=== PATIENT | female | born 1990 | race African-American/Black ===

== ENCOUNTER 2023-11-11 11:06 | Outpatient (CLI) | payer OTHER, SELFPAY ==
--- NOTE | ~2023-11-11 | US_ITS ---
US right upper quadrant INDICATION: Bloating. Abdomen discomfort. PROCEDURE: Realtime right upper abdominal ultrasound. COMPARISON: No prior studies for comparison. FINDINGS: The pancreas is normal without focal mass or pancreatic ductal dilation. Liver echotexture is normal without focal mass or intrahepatic biliary dilatation. There is normal directional flow i n the portal vein. The gallbladder is normal without stones, gallbladder wall thickening or pericholecystic fluid. Comm on bile duct measures 3.5 mm. No sonographic Franks's sign. IMPRESSION: 1: Normal limited abdominal ultrasound. Reviewed, dictated and finalized at location B.
[2023-11-11 11:40] LABS: Hematocrit 42.3 % (37.0-47.0); Hemoglobin 13.9 g/dL (12.0-15.0); Mean Corpuscular HGB Conc 32.9 g/dl (32-36); Mean Corpuscular Hemoglobin 30.3 pg (26-34); Mean Corpuscular Volume 92.4 fl (80-100); Mean Platelet Volume 11.5 fl (7.4-10.4); Platelet Count Result 248 k/mm3 (150-375); Red Blood Count 4.58 M/mm3 (4.2-5.4); Red Cell Distribution Width 13.3 % (11.5-14.5); White Blood Count 7.5 K/mm3 (4.5-10.0)
[2023-11-11 12:17] LABS: Free T4 Free Thyroxine 0.87 ng/mL (0.78-2.19)
[2023-11-11 12:33] LABS: HIV 1/2 Ab P24 Ag Result Negative (Negative)
[2023-11-11 12:35] LABS: Rapid Plasma Reagin Non-Reactive (NonReactive)
[2023-11-11 12:48] LABS: Hepatitis C Virus Antibody Negative (Negative)
[2023-11-11 13:01] LABS: Hemoglobin A1C 5.4 % (<5.7)
[2023-11-11 17:09] LABS: Alanine Aminotransferase 33 U/L (6-35); Albumin Level 4.5 g/dL (3.5-5.1); Alkaline Phosphatase 62 U/L (38-126); Anion Gap 6 mmol/L (4-12); Aspartate Amino Transferase 31 U/L (14-36); Bilirubin,Total 0.7 mg/dL (0.2-1.3); Blood Urea Nitrogen 13 mg/dL (7-17); Calcium 9.5 mg/dL (8.4-10.2); Carbon Dioxide 26 mmol/L (22-30); Chloride 107 mmol/L (98-107); Cholesterol 160 mg/dL (0-200); Estimated Glomerular Filt Rate > 60; Glucose 91 mg/dL (65-110); HDL Direct 45 mg/dL; Potassium 4.1 mmol/L (3.4-5.0); Sodium 139 mmol/L (137-145); Triglycerides 97 mg/dL (<150)
[2023-11-11 17:20] LABS: LDL Cholesterol Direct 95 mg/dL
[2023-11-13 07:09] LABS: FSH 38.7 mIU/mL; LH 132.7 mIU/mL
== END 2023-11-11 11:07 | disposition home or self-care (01) ==
PROVIDERS: Visit Provider Obstetrics & Gynecology
DX: Z31.69 Encounter for other general counseling and advice on procreation (principal); Z87.19 Personal history of other diseases of the digestive system
CPT/HCPCS: 36415; 76705; 80053; 80061; 83001; 83002; 83036; 84439; 84443; 85027; 86592; 86703; 86762; 86787; 86803; G0432

== ENCOUNTER 2024-03-08 14:08 | Outpatient (CLI) | payer OTHER, SELFPAY ==
[2024-03-09 18:52] LABS: Progesterone 12.3 ng/mL
[2024-03-16 02:58] LABS: FSH 2.6 mIU/mL; LH 2.7 mIU/mL
== END 2024-03-08 14:09 | disposition home or self-care (01) ==
PROVIDERS: Visit Provider Obstetrics & Gynecology
DX: Z30.09 Encounter for other general counseling and advice on contraception (principal)
CPT/HCPCS: 36415; 83001; 83002; 84144

== ENCOUNTER 2024-05-25 09:20 | Outpatient (CLI) | payer OTHER, BC, SELFPAY ==
[2024-05-25 10:27] LABS: Basophils Absolute Auto 0.1 K/mm3 (0.0-0.1); Eosinophils Absolute Auto 0.3 K/mm3 (0-0.3); Eosinophils Percent Auto 3.7 % (0-4.4); Hematocrit 42.3 % (37.0-47.0); Hemoglobin 13.8 g/dL (12.0-15.0); Immature Granulocyte Absolute 0.01 K/mm3 (0.00-0.031); Immature Granulocyte Percent A 0.1 % (0-0.5); Lymphocytes Absolute Auto 2.55 K/mm3 (0.9-3.2); Lymphocytes Percent Auto 37.9 % (18.3-44.2); Mean Corpuscular HGB Conc 32.6 g/dl (32-36); Mean Corpuscular Hemoglobin 30.3 pg (26-34); Mean Platelet Volume 11.4 fl (7.4-10.4); Monocytes Absolute Auto 0.4 K/mm3 (0.1-0.6); Monocytes Percent Auto 6.5 % (2.6-8.5); Neutrophils Absolute Auto 3.4 K/mm3 (1.3-6.7); Neutrophils Percent Auto 50.8 % (45.5-73.1); Platelet Count Result 284 k/mm3 (150-375); Red Blood Count 4.55 M/mm3 (4.2-5.4); Red Cell Distribution Width 13.6 % (11.5-14.5); White Blood Count 6.7 K/mm3 (4.5-10.0)
[2024-05-25 10:34] LABS: Alanine Aminotransferase 24 U/L (6-35); Albumin Level 4.5 g/dL (3.5-5.1); Alkaline Phosphatase 65 U/L (38-126); Anion Gap 6 mmol/L (4-12); Aspartate Amino Transferase 27 U/L (14-36); Bilirubin,Total 0.9 mg/dL (0.2-1.3); Blood Urea Nitrogen 16 mg/dL (7-17); Calcium 9.4 mg/dL (8.4-10.2); Carbon Dioxide 26 mmol/L (22-30); Chloride 108 mmol/L (98-107); Cholesterol 199 mg/dL (0-200); Estimated Glomerular Filt Rate > 60; Glucose 91 mg/dL (65-110); HDL Direct 41 mg/dL; Potassium 4.3 mmol/L (3.4-5.0); Sodium 140 mmol/L (137-145); Triglycerides 99 mg/dL (<150)
[2024-05-25 10:45] LABS: LDL Cholesterol Direct 105 mg/dL
[2024-05-25 10:48] LABS: Add Urine Microscopic? NO; Appearance Urine Clear (Clear); Bilirubin Urine Negative (Negative); Blood Urine Negative (Negative); Color Urine Yellow (Yellow); Glucose Urine UA Negative (Negative); Ketones Urine Trace mg/dL (Negative); Leukocyte Esterase Ur Negative LEU/UL (Negative); Nitrate Urine Negative (Negative); Protein Urine Negative (Negative); Specific Grav Ur 1.026 (1.001-1.035); pH Urine 5.5 (5.0-9.0)
[2024-05-25 11:09] LABS: Hepatitis B Surface Antigen Negative (Negative)
[2024-05-25 11:26] LABS: Hepatitis B Surface Anti Res Negative; Hepatitis C Virus Antibody Negative (Negative)
[2024-05-26 09:49] LABS: Hepatitis B Core Ab Total NON-REACTIVE (NON-REACTIVE)
[2024-05-28 11:33] LABS: TSH QUEST 1.06 mIU/L
[2024-05-29 16:03] LABS: H pylori, Urea Breath NOT DETECTED (NOT DETECTED)
== END 2024-05-25 09:21 | disposition home or self-care (01) ==
PROVIDERS: PCP Family Medicine; Visit Provider Family Medicine
DX: Z00.00 Encounter for general adult medical examination without abnormal findings (principal); R12 Heartburn; Z11.59 Encounter for screening for other viral diseases; Z13.0 Encounter for screening for diseases of the blood and blood-forming organs and certain disorders involving the immune mechanism; Z13.1 Encounter for screening for diabetes mellitus; Z13.220 Encounter for screening for lipoid disorders; Z13.29 Encounter for screening for other suspected endocrine disorder; Z13.6 Encounter for screening for cardiovascular disorders; Z13.818 Encounter for screening for other digestive system disorders; Z13.89 Encounter for screening for other disorder
CPT/HCPCS: 36415; 80053; 80061; 81003; 83013; 84443; 85025; 86704; 86706; 86803; 87340